=== PATIENT | female | born 1990 | race African-American/Black ===

== ENCOUNTER 2018-05-29 01:58 | Emergency (ER) | payer OTHER ==
[2018-05-29 02:29] LABS: Bilirubin Negative (Negative); Blood, Urine Negative (Negative); Clarity CLEAR (Clear); Glucose, Urine (Dipstick) Negative (Negative); Leukocyte Negative (Negative); Nitrite Negative (Negative); Protein, Urine (Dipstick) Trace mg/dL (Neg-Trace); Urobilinogen 0.2 mg/dL (0.2-1.0); pH, Urine 5.5 (5.0-9.0)
[2018-05-29] MEDS ORDERED: Lidocaine 1% PF 5 ML VIAL ONE (02:59)
[2018-05-29] MEDS ORDERED: cefTRIAXone\\ROCEPHIN 250 MG VIAL ONE (02:59)
[2018-05-29] MEDS ORDERED: Azithromycin 250 MG TAB ONE (02:59)
[2018-05-30 20:02] LABS: Chlamydia by PCR Not Detected (NotDetected); GC by PCR Not Detected (NotDetected)
== END 2018-05-29 03:23 | disposition home or self-care (01) ==
LOC: ERS 01:58
DX: N89.8 Other specified noninflammatory disorders of vagina (principal)
CPT/HCPCS: 81003; 87491; 87591; 96372; J0696; J2001